=== PATIENT | male | born 1985 | race Two or more races ===

== ENCOUNTER 2017-10-26 16:01 | Inpatient (IN) | payer OTHER ==
[2017-10-26 18:30] VITALS: BMI 24.9
--- NOTE | 2017-10-26 19:58 | HP ---
CIWA Score - CIWA Score Nausea/Vomitin-Mild Nausea/No Vomiting Muscle Tremors: 4-Moderate,w/Arms Extend Anxiety: 4-Mod. Anxious/Guarded Agitation: 4-Moderately Restless Paroxysmal Sweats: 1-Minimal Palms Moist Orientation: 0-Oriented Tacttile Disturbances: 0-None Auditory Disturbances: 0-None Visual Disturbances: 0-None Headache: 0-None Present CIWA-Ar Total Score: 14 Admission ROS BHS - HPI Chief Complaint: withdrawal sx Allergies/Adverse Reactions: Allergies Allergy/AdvReac Type Severity Reaction Status Date / Time No Known Allergies Allergy Verified 06/05/16 19:28 History of Present Illness: 32 years old male with long history of xanax nicotine dependence has depression on methadone 170 mg po daily is admitted to detox Exam Limitations: No Limitations - Ebola screening Have you traveled outside of the country in the last 21 days: No (N) Have you had contact with anyone from an Ebola affected area: No Have you been sick,other than usual withdrawal symptoms: No Do you have a fever: No - Review of Systems Constitutional: Loss of Appetite, Changes in sleep, Unintentional Wgt. Loss EENT: reports: Nose Congestion Respiratory: reports: No Symptoms reported Cardiac: reports: No Symptoms Reported GI: reports: Nausea, Poor Appetite, Poor Fluid Intake, Indigestion, Abdominal cramping : reports: No Symptoms Reported Musculoskeletal: reports: Back Pain, Neck Pain Integumentary: reports: No Symptoms Reported Neuro: reports: Seizure (2012), Tremors Endocrine: reports: No Symptoms Reported Hematology: reports: No Symptoms Reported Psychiatric: reports: Judgement Intact, Orientated x3, Anxious, Depressed Other Systems: Reviewed and Negative Patient History - Patient Medical History Hx Anemia: No Hx Asthma: No Hx Chronic Obstructive Pulmonary Disease (COPD): No Hx Cancer: No Hx Cardiac Disorders: No Hx Congestive Heart Failure: No Hx Hypertension: No Hx Hypercholesterolemia: No Hx Pacemaker: No HX Cerebrovascular Accident: No Hx Seizures: Yes (09/2014) Hx Dementia: No Hx Diabetes: No Hx Gastrointestinal Disorders: Yes Hx Liver Disease: No Hx Genitourinary Disorders: No Hx Sexually Transmitted Disorders: No Hx Renal Disease (ESRD): No Hx Thyroid Disease: No Hx Human Immunodeficiency Virus (HIV): No (NEGATIVE HX) Hx Hepatitis C: No Hx Depression: Yes Hx Suicide Attempt: No Hx Bipolar Disorder: No Hx Schizophrenia: No - Patient Surgical History Past Surgical History: No Hx Neurologic Surgery: No Hx Cataract Extraction: No Hx Cardiac Surgery: No Hx Lung Surgery: No Hx Breast Surgery: No Hx Breast Biopsy: No Hx Abdominal Surgery: No Hx Appendectomy: No Hx Cholecystectomy: No Hx Genitourinary Surgery: No Hx Orthopedic Surgery: No - PPD History Previous Implant?: Yes Documented Results: Negative w/proof Implanted On Prior [facility] Admission?: Yes Date: 05/08/16 Results: 0mm PPD to be Administered?: Yes - Smoking Cessation Smoking history: Current every day smoker Have you smoked in the past 12 months: Yes Aproximately how many cigarettes per day: 20 Cigars Per Day: 0 Hx Chewing Tobacco Use: No Initiated information on smoking cessation: Yes 'Breaking Loose' booklet given: 10/26/17 - Substance & Tx. History Hx Alcohol Use: No Hx Substance Use: Yes Substance Use Type: Cocaine, Marijuana, Tranquilizers Hx Substance Use Treatment: Yes (2015) - Substances Abused Alprazolam (Xanax) Route: Oral Frequency: Daily Amount used: 10 mg Age of first use: 26 Date of Last Use: 10/26/17 Benzodiazepine (Klonopin) Route: Oral Frequency: Daily Amount used: 4 mg Age of first use: 28 Date of Last Use: 10/26/17 Family Disease History - Family Disease History Family Disease History: Heart Disease: Father (HTN), Respiratory: Sister, Other : Father Admission Physical Exam BHS - Vital Signs Vital Signs: Vital Signs - 24 hr 10/26/17 18:27 Temperature 97.3 F L Pulse Rate 90 Respiratory 18 Rate Blood Pressure 121/70 - Physical General Appearance: Yes: No Apparent Distress, Appropriately Dressed, Thin, Tremorous, Irritable, Sweating, Anxious HEENTM: Yes: Hearing grossly Normal, Normal ENT Inspection, Normocephalic, Normal Voice Respiratory: Yes: Chest Non-Tender, Lungs Clear, Normal Breath Sounds, No Respiratory Distress, No Accessory Muscle Use Neck: Yes: Supple, Trachea in good position Breast: Yes: Breasts Symetrical Cardiology: Yes: Regular Rhythm, S1, S2, Tachycardia Abdominal: Yes: Non Tender, Soft, Increased Bowel Sounds Genitourinary: Yes: Within Normal Limits Back: Yes: Normal Inspection Musculoskeletal: Yes: full range of Motion, Gait Steady Extremities: Yes: Normal Inspection, Normal Range of Motion, Non-Tender, Tremors Neurological: Yes: Fully Oriented, Alert, Motor Strength 5/5, Normal Response, Depressed Affect Integumentary: Yes: Warm Lymphatic: Yes: Within Normal Limits - Diagnostic (1) Nicotine dependence Current Visit: Yes Status: Acute Qualifiers: Nicotine product type: cigarettes Substance use status: in withdrawal Qualified Code(s): F17.213 - Nicotine dependence, cigarettes, with withdrawal (2) Sedative, hypnotic or anxiolytic dependence with withdrawal, uncomplicated Current Visit: Yes Status: Acute (3) Methadone maintenance therapy patient Current Visit: Yes Status: Chronic Comment: 170 mg verification pending (4) GERD (gastroesophageal reflux disease) Current Visit: Yes Status: Chronic Qualifiers: Esophagitis presence: without esophagitis Qualified Code(s): K21.9 - Gastro -esophageal reflux disease without esophagitis Cleared for Admission S - Detox or Rehab [facility] Level of Care: Medically Managed Detox Regimen/Protocol: Valium [facility] Breath Alcohol Content Breath Alcohol Content: 0 Urine Drug Screen - Results Drug Screen Negative: No Urine Drug Screen Results: THC-Marijuana, TANI-Cocaine, BZO-Benzodiazepines, MTD- Methadone
[2017-10-26] MEDS ORDERED: NICOTINE POLACRILEX 4 MG GUM BC PRN (20:02)
[2017-10-26] MEDS ORDERED: guaiFENesin/D-METHORPHAN HB 10 ML UNIT-DOSE CUPS PO PRN (20:02)
[2017-10-26] MEDS ORDERED: LOPERAMIDE HCL 2 MG CAPSULE PO PRN (20:02)
[2017-10-26] MEDS ORDERED: MAGNESIUM CITRATE 300 ML BOTTLE PO PRN (20:02)
[2017-10-26] MEDS ORDERED: diazePAM 5 MG TABLET PO PRN (20:02)
[2017-10-26] MEDS ORDERED: MENTHOL/PHENOL 1 EACH UD MM PRN (20:02)
[2017-10-26] MEDS ORDERED: diazePAM 5 MG TABLET PO ONE (20:02)
[2017-10-26] MEDS ORDERED: P-EPHED 60MG/TRIPROLIDI 2.5MG TABLET PO PRN (20:02)
[2017-10-26] MEDS ORDERED: MAGNESIUM HYDROX 2400MG/30ML ORAL SUSPENSION 30 ML CUP PO PRN (20:02)
[2017-10-26] MEDS ORDERED: MAG HYDROX/AL HYDROX/SIMETH 30 ML UNIT-DOSE CUP PO PRN (20:02)
[2017-10-26] MEDS: FLUTICASONE PROP 0.05% 16 GM NASAL SPRAY NS SCH (23:36)
[2017-10-26] MEDS: THIAMINE HCL 100 MG TABLET (FP) PO SCH (23:36)
[2017-10-26] MEDS: RANITIDINE HCL 150 MG TABLET (FP) PO SCH (23:36)
[2017-10-26] MEDS: diazePAM 5 MG TABLET PO SCH (23:36)
[2017-10-27] MEDS: diazePAM 5 MG TABLET PO SCH ×3 (05:34→22:20)
[2017-10-27] MEDS ORDERED: METHADONE HCL 10 MG TABLET PO SCH (09:15)
[2017-10-27] MEDS: ACETAMINOPHEN 325 MG TABLET (FP) PO PRN (09:35)
[2017-10-27] MEDS ORDERED: METHADONE HCL 10 MG TABLET ONE (09:39)
[2017-10-27] MEDS ORDERED: METHADONE HCL 40 MG DISPERSABLE TABLET ONE (09:40)
[2017-10-27 10:15] LABS: HEMATOCRIT 42.8 % (35.4-49); HEMOGLOBIN 14.4 GM/dL (11.7-16.9); MCH 32.6 pg (25.7-33.7); MCHC 33.5 g/dl (32.0-35.9); MEAN CELL VOLUME 97.1 fl (80-96); PLATELET COUNT 177 K/MM3 (134-434); RBC 4.41 M/mm3 (4.00-5.60); RDW 13.9 % (11.9-15.9); WHITE BLOOD COUNT 8.4 K/mm3 (4.0-10.0)
[2017-10-27 10:40] LABS: ALBUMIN 3.5 g/dl (3.4-5.0); ANION GAP 3 (8-16); BILIRUBIN,TOTAL 0.4 mg/dL (0.2-1.0); BLOOD UREA NITROGEN 16 mg/dL (7-18); CALCIUM 8.4 mg/dL (8.5-10.1); CHLORIDE 107 mmol/L (98-107); CO2 33 mmol/L (21-32); CREATININE 0.8 mg/dL (0.7-1.3); GLUCOSE,RANDOM 77 mg/dL (74-106); SGOT/AST 9 U/L (15-37); SGPT/ALT 14 U/L (12-78); SODIUM 143 mmol/L (136-145); TOT PROT 6.1 g/dl (6.4-8.2)
[2017-10-27 10:41] LABS: ALK PHOS 58 U/L (45-117)
[2017-10-27] MEDS: METHADONE 160 MG, METHADONE 10 MG PO SCH (10:43)
[2017-10-27] MEDS: PRENATAL VITAMINS W/ FOLIC ACID TABLET (FP) PO SCH (10:43)
[2017-10-27] MEDS: RANITIDINE HCL 150 MG TABLET (FP) PO SCH ×2 (10:43→22:21)
[2017-10-27] MEDS: NICOTINE 21 MG/24 HOURS TOPICAL PATCH TD SCH (10:44)
[2017-10-27] MEDS: FLUTICASONE PROP 0.05% 16 GM NASAL SPRAY NS SCH ×2 (10:45→22:22)
--- NOTE | 2017-10-27 11:45 | EKG ---
Test Reason : Blood Pressure : / mmHG Vent. Rate : 051 BPM Atrial Rate : 051 BPM P-R Int : 150 ms QRS Dur : 096 ms QT Int : 468 ms P-R-T Axes : 035 064 046 degrees QTc Int : 431 ms SINUS BRADYCARDIA MODERATE VOLTAGE CRITERIA FOR LVH, MAY BE NORMAL VARIANT EARLY REPOLARIZATION BORDERLINE ECG WHEN COMPARED WITH ECG OF 05-JUN-2016 10:12, VENT. RATE HAS DECREASED BY 53 BPM Confirmed by TYREE RS, FARHAT ([id number]) on 10/27/2017 11:44:39 AM Referred By: GINGER NICHOLAS Confirmed By:FARHAT CLEMENTS MD
[2017-10-27] MEDS ORDERED: FLU VACCINE QUAD 60 MCG/0.5 ML (MDV 17-18) IM ONE (12:00)
[2017-10-27] MEDS ORDERED: PNEUMOC 13-VAL CONJ-DIP CRM/PF 0.5 ML DISP.SYRIN IM ONE (12:00)
[2017-10-27] MEDS ORDERED: PNEUMOCOCCAL 23 VACCINE 0.5 ML VIAL IM ONE (12:00)
--- NOTE | 2017-10-27 14:31 | CONSULT ---
[facility] Psychiatric Consult - Data Date of interview: 10/27/17 Admission source: [facility] Identifying data: This is 32 years old male with no psychiatric hospiytalization history intoxicated with: Xanax, Cocaine, Methadone, Cannabis Substance Abuse History: - Smoking Cessation. Smoking history: Current every day smoker. Have you smoked in the past 12 months: Yes. Aproximately how many cigarettes per day: 20. Cigars Per Day: 0. Hx Chewing Tobacco Use: No. Initiated information on smoking cessation: Yes. 'Breaking Loose' booklet given : 10/26/17. - Substance & Tx. History. Hx Alcohol Use: No. Hx Substance Use: Yes. Substance Use Type: Cocaine, Marijuana, Tranquilizers. Hx Substance Use Treatment: Yes (2015). - Substances Abused. Alprazolam (Xanax). Route: Oral. Frequency: Daily. Amount used: 10 mg. Age of first use: 26. Date of Last Use: 10/26/17. Benzodiazepine (Klonopin). Route: Oral. Frequency: Daily. Amount used: 4 mg. Age of first use: 28. Date of Last Use: 10/26/17 Medical History: MMTP M170mg per day, GERD Psychiatric History: pATIENT REPORTS HIOSTORY OF ANXIETY , INSOMNIA, denies psychiatric hospitalization history, Reports good response on Trazodone 150mg po qhs Physical/Sexual Abuse/Trauma History: Denies Additional Comment: Trazodone 150mg po qhs Mental Status Exam - Mental Status Exam Alert and Oriented to: Place, Person Cognitive Function: Fair Patient Appearance: Well Groomed Mood: Euthymic Affect: Mood Congruent Patient Behavior: Cooperative Speech Pattern: Appropriate Voice Loudness: Normal Thought Process: Disoriented Thought Disorder: Being Controlled Hallucinations: Denies Suicidal Ideation: Denies Homicidal Ideation: Denies Insight/Judgement: Fair Sleep: Difficulty falling asleep Appetite: Fair Muscle strength/Tone: Normal Gait/Station: Normal Additional Comments: Trazodone 150mg po qhs Psychiatric Findings - Problem List ([place] 1, 2,3) (1) Nicotine dependence Current Visit: Yes Status: Acute Qualifiers: Nicotine product type: cigarettes Substance use status: in withdrawal Qualified Code(s): F17.213 - Nicotine dependence, cigarettes, with withdrawal (2) Sedative, hypnotic or anxiolytic dependence with withdrawal, uncomplicated Current Visit: Yes Status: Acute (3) Methadone maintenance therapy patient Current Visit: Yes Status: Chronic Comment: 170 mg verification pending (4) Cannabis dependence, uncomplicated Current Visit: No Status: Acute (5) Opioid dependence on agonist therapy Current Visit: No Status: Acute (6) Sedative hypnotic or anxiolytic dependence Current Visit: No Status: Acute (7) Substance-induced sleep disorder Current Visit: No Status: Acute - Initial Treatment Plan Initial Treatment Plan: Trazodone 150mg po qhs
--- NOTE | 2017-10-27 15:45 | PN ---
S CIWA - CIWA Score Nausea/Vomitin Muscle Tremors: 3 Anxiety: 4-Mod. Anxious/Guarded Agitation: 3 Paroxysmal Sweats: No Perspiration Orientation: 0-Oriented Tacttile Disturbances: 2-Mild Itch/Numbness/Burn Auditory Disturbances: 0-None Visual Disturbances: 1-Very Mild Sensitivity Headache: 4-Moderately Severe CIWA-Ar Total Score: 20 BHS Progress Note (SOAP) Subjective: Sweating, Tremors, anxious, H/A, Constipation. Objective: PT. A & O X 3, OBSERVED AMBULATING ON UNIT. NO ACUTE DISTRESS. 10/27/17 15:43 Vital Signs Temperature 96.5 F L 10/27/17 13:11 Pulse Rate 51 L 10/27/17 13:11 Respiratory Rate 18 10/27/17 13:11 Blood Pressure 112/67 10/27/17 13:11 O2 Sat by Pulse Oximetry (%) Laboratory Tests 10/27/17 10/27/17 10/27/17 07:00 07:00 07:00 WBC 8.4 D RBC 4.41 Hgb 14.4 Hct 42.8 MCV 97.1 H MCH 32.6 MCHC 33.5 RDW 13.9 Plt Count 177 D MPV 10.0 D Sodium 143 Potassium 4.0 Chloride 107 Carbon Dioxide 33 H D Anion Gap 3 L BUN 16 D Creatinine 0.8 Creat Clearance w eGFR > 60 Random Glucose 77 Calcium 8.4 L Total Bilirubin 0.4 AST 9 L D ALT 14 D Alkaline Phosphatase 58 Total Protein 6.1 L Albumin 3.5 RPR Titer Nonreactive HIV 1&2 Antibody Screen HIV P24 Antigen 10/27/17 09:00 WBC RBC Hgb Hct MCV MCH MCHC RDW Plt Count MPV Sodium Potassium Chloride Carbon Dioxide Anion Gap BUN Creatinine Creat Clearance w eGFR Random Glucose Calcium Total Bilirubin AST ALT Alkaline Phosphatase Total Protein Albumin RPR Titer HIV 1&2 Antibody Screen Negative HIV P24 Antigen Negative LABS NOTED. HCV AB, UA, AND RPR RESULTS PENDING. 10/27/17 15:44 10/27/17 15:45 Assessment: 10/27/17 15:44 WITHDRAWAL SYMPTOMS. Plan: CONTINUE DETOX. INCREASE DAILY PO FLUID INTAKE. PRN MOM FOR CONSTIPATION.
[2017-10-27 16:52] LABS: URINE APPEARANCE CLEAR; URINE BILIRUBIN NEGATIVE (NEGATIVE); URINE BLOOD NEGATIVE (NEGATIVE); URINE COLOR YELLOW; URINE GLUCOSE (UA) NEGATIVE (NEGATIVE); URINE KETONE NEGATIVE (NEGATIVE); URINE LEUK ESTERASE TRACE (NEGATIVE); URINE NITRITE NEGATIVE (NEGATIVE); URINE PROTEIN NEGATIVE (NEGATIVE); URINE UROBILINOGEN NEGATIVE mg/dL (0.2-1.0)
[2017-10-27 17:25] LABS: EPI CELLS RARE /HPF (FEW); URINE MUCUS FEW
[2017-10-27] MEDS: THIAMINE HCL 100 MG TABLET (FP) PO SCH (22:20)
[2017-10-27] MEDS: traZODone HCL 50 MG TABLET (FP) PO SCH (22:21)
[2017-10-28] MEDS ORDERED: METHADONE HCL 10 MG TABLET ONE (04:24)
[2017-10-28] MEDS ORDERED: METHADONE HCL 40 MG DISPERSABLE TABLET ONE (04:24)
[2017-10-28] MEDS: METHADONE 160 MG, METHADONE 10 MG PO SCH (05:51)
[2017-10-28] MEDS: RANITIDINE HCL 150 MG TABLET (FP) PO SCH ×2 (10:37→22:35)
[2017-10-28] MEDS: diazePAM 5 MG TABLET PO SCH ×2 (10:37→22:35)
[2017-10-28] MEDS: PRENATAL VITAMINS W/ FOLIC ACID TABLET (FP) PO SCH (10:37)
[2017-10-28] MEDS: NICOTINE 21 MG/24 HOURS TOPICAL PATCH TD SCH (10:37)
[2017-10-28] MEDS: FLUTICASONE PROP 0.05% 16 GM NASAL SPRAY NS SCH ×2 (10:38→22:36)
--- NOTE | 2017-10-28 15:10 | PN ---
S CIWA - CIWA Score Nausea/Vomitin Muscle Tremors: None Anxiety: 4-Mod. Anxious/Guarded Agitation: 2 Paroxysmal Sweats: 3 Orientation: 0-Oriented Tacttile Disturbances: 0-None Auditory Disturbances: 2-Mild Harshness/Frighten Visual Disturbances: 2-Mild Sensitivity Headache: 0-None Present CIWA-Ar Total Score: 16 S Progress Note (SOAP) Subjective: Nausea, Sweating, Constipation, Fatigue, Stomach Cramping. Objective: PT. A & O X 3, OBSERVED AMBULATING ON UNIT. NO ACUTE DISTRESS. 10/28/17 15:08 Vital Signs Temperature 97.9 F 10/28/17 13:26 Pulse Rate 59 L 10/28/17 13:26 Respiratory Rate 20 10/28/17 13:26 Blood Pressure 121/75 10/28/17 13:26 O2 Sat by Pulse Oximetry (%) Laboratory Tests 10/26/17 10/26/17 10/27/17 07:00 16:35 07:00 WBC 8.4 D RBC 4.41 Hgb 14.4 Hct 42.8 MCV 97.1 H MCH 32.6 MCHC 33.5 RDW 13.9 Plt Count 177 D MPV 10.0 D Sodium Potassium Chloride Carbon Dioxide Anion Gap BUN Creatinine Creat Clearance w eGFR Random Glucose Calcium Total Bilirubin AST ALT Alkaline Phosphatase Total Protein Albumin Urine Color Yellow Urine Appearance Clear Urine pH 6.0 Ur Specific [place] 1.016 Urine Protein Negative Urine Glucose (UA) Negative Urine Ketones Negative Urine Blood Negative Urine Nitrite Negative Urine Bilirubin Negative Urine Urobilinogen Negative Ur Leukocyte Esterase Negative Urine WBC (Auto) 1 Urine RBC (Auto) <1 Ur Epithelial Cells Rare Urine Mucus Few RPR Titer Hepatitis C Antibody <0.1 HIV 1&2 Antibody Screen HIV P24 Antigen 10/27/17 10/27/17 10/27/17 07:00 07:00 09:00 WBC RBC Hgb Hct MCV MCH MCHC RDW Plt Count MPV Sodium 143 Potassium 4.0 Chloride 107 Carbon Dioxide 33 H D Anion Gap 3 L BUN 16 D Creatinine 0.8 Creat Clearance w eGFR > 60 Random Glucose 77 Calcium 8.4 L Total Bilirubin 0.4 AST 9 L D ALT 14 D Alkaline Phosphatase 58 Total Protein 6.1 L Albumin 3.5 Urine Color Urine Appearance Urine pH Ur Specific [place] Urine Protein Urine Glucose (UA) Urine Ketones Urine Blood Urine Nitrite Urine Bilirubin Urine Urobilinogen Ur Leukocyte Esterase Urine WBC (Auto) Urine RBC (Auto) Ur Epithelial Cells Urine Mucus RPR Titer Nonreactive Hepatitis C Antibody HIV 1&2 Antibody Screen Negative HIV P24 Antigen Negative LABS NOTED. Assessment: 10/28/17 15:09 WITHDRAWAL SYMPTOMS. Plan: CONTINUE DETOX. INCREASE DAILY PO FLUID INTAKE. ENCOURAGE AMBULATION.
[2017-10-28] MEDS: ACETAMINOPHEN 325 MG TABLET (FP) PO PRN (20:10)
[2017-10-28] MEDS: traZODone HCL 50 MG TABLET (FP) PO SCH (22:35)
[2017-10-28] MEDS: THIAMINE HCL 100 MG TABLET (FP) PO SCH (22:36)
[2017-10-29] MEDS ORDERED: METHADONE HCL 40 MG DISPERSABLE TABLET ONE (04:51)
[2017-10-29] MEDS ORDERED: METHADONE HCL 10 MG TABLET ONE (04:51)
[2017-10-29] MEDS: METHADONE 160 MG, METHADONE 10 MG PO SCH (05:26)
[2017-10-29] MEDS: RANITIDINE HCL 150 MG TABLET (FP) PO SCH ×2 (10:59→22:47)
[2017-10-29] MEDS: PRENATAL VITAMINS W/ FOLIC ACID TABLET (FP) PO SCH (10:59)
[2017-10-29] MEDS: diazePAM 5 MG TABLET PO SCH ×2 (10:59→22:46)
[2017-10-29] MEDS: NICOTINE 21 MG/24 HOURS TOPICAL PATCH TD SCH (11:00)
[2017-10-29] MEDS: FLUTICASONE PROP 0.05% 16 GM NASAL SPRAY NS SCH ×2 (11:00→22:46)
[2017-10-29] MEDS ORDERED: IBUPROFEN 400 MG TABLET (FP) PO PRN (11:57)
[2017-10-29] MEDS ORDERED: ONDANSETRON *ODT* 4 MG TABLET SL PRN (11:58)
--- NOTE | 2017-10-29 15:14 | PN ---
BHS Progress Note (SOAP) Subjective: Constipation, H/A, Tremors. Objective: PT. A & O X 3, OBSERVED AMBULATING ON UNIT. NO ACUTE DISTRESS. 10/29/17 15:13 Vital Signs Temperature 98.5 F 10/29/17 14:58 Pulse Rate 63 10/29/17 14:58 Respiratory Rate 18 10/29/17 14:58 Blood Pressure 117/66 10/29/17 14:58 O2 Sat by Pulse Oximetry (%) Laboratory Tests 10/26/17 10/26/17 10/27/17 07:00 16:35 07:00 WBC 8.4 D RBC 4.41 Hgb 14.4 Hct 42.8 MCV 97.1 H MCH 32.6 MCHC 33.5 RDW 13.9 Plt Count 177 D MPV 10.0 D Sodium Potassium Chloride Carbon Dioxide Anion Gap BUN Creatinine Creat Clearance w eGFR Random Glucose Calcium Total Bilirubin AST ALT Alkaline Phosphatase Total Protein Albumin Urine Color Yellow Urine Appearance Clear Urine pH 6.0 Ur Specific [place] 1.016 Urine Protein Negative Urine Glucose (UA) Negative Urine Ketones Negative Urine Blood Negative Urine Nitrite Negative Urine Bilirubin Negative Urine Urobilinogen Negative Ur Leukocyte Esterase Negative Urine WBC (Auto) 1 Urine RBC (Auto) <1 Ur Epithelial Cells Rare Urine Mucus Few RPR Titer Hepatitis C Antibody <0.1 HIV 1&2 Antibody Screen HIV P24 Antigen 10/27/17 10/27/17 10/27/17 07:00 07:00 09:00 WBC RBC Hgb Hct MCV MCH MCHC RDW Plt Count MPV Sodium 143 Potassium 4.0 Chloride 107 Carbon Dioxide 33 H D Anion Gap 3 L BUN 16 D Creatinine 0.8 Creat Clearance w eGFR > 60 Random Glucose 77 Calcium 8.4 L Total Bilirubin 0.4 AST 9 L D ALT 14 D Alkaline Phosphatase 58 Total Protein 6.1 L Albumin 3.5 Urine Color Urine Appearance Urine pH Ur Specific [place] Urine Protein Urine Glucose (UA) Urine Ketones Urine Blood Urine Nitrite Urine Bilirubin Urine Urobilinogen Ur Leukocyte Esterase Urine WBC (Auto) Urine RBC (Auto) Ur Epithelial Cells Urine Mucus RPR Titer Nonreactive Hepatitis C Antibody HIV 1&2 Antibody Screen Negative HIV P24 Antigen Negative LABS NOTED. Assessment: 10/29/17 15:13 WITHDRAWAL SYMPTOMS. Plan: CONTINUE DETOX.
[2017-10-29] MEDS: traZODone HCL 50 MG TABLET (FP) PO SCH (22:46)
[2017-10-29] MEDS: THIAMINE HCL 100 MG TABLET (FP) PO SCH (22:46)
[2017-10-30] MEDS ORDERED: METHADONE HCL 10 MG TABLET ONE (04:23)
[2017-10-30] MEDS ORDERED: METHADONE HCL 40 MG DISPERSABLE TABLET ONE (04:24)
[2017-10-30] MEDS: METHADONE 160 MG, METHADONE 10 MG PO SCH (05:38)
[2017-10-30] MEDS ORDERED: diazePAM 5 MG TABLET PO SCH (10:00)
[2017-10-30 10:42] VITALS: BP 119/77; PULSE 69; TEMP 98.1
[2017-10-30] MEDS: RANITIDINE HCL 150 MG TABLET (FP) PO SCH (11:04)
[2017-10-30] MEDS: NICOTINE 21 MG/24 HOURS TOPICAL PATCH TD SCH (11:04)
[2017-10-30] MEDS: PRENATAL VITAMINS W/ FOLIC ACID TABLET (FP) PO SCH (11:04)
[2017-10-30] MEDS: FLUTICASONE PROP 0.05% 16 GM NASAL SPRAY NS SCH (11:04)
--- NOTE | 2017-10-30 15:27 | DS ---
[facility] Detox Discharge Summary Admission Date: 10/26/17 Discharge Date: 10/30/17 - History Present History: Sedative Dependence, MMTP Pertinent Past History: Seizure disorder GERD - Physical Exam Results Vital Signs: Vital Signs Temperature 98.1 F 10/30/17 10:41 Pulse Rate 69 10/30/17 10:41 Respiratory Rate 18 10/30/17 10:41 Blood Pressure 119/77 10/30/17 10:41 O2 Sat by Pulse Oximetry (%) Pertinent Admission Physical Exam Findings: Withdrawal symptoms Laboratory Tests 10/26/17 10/26/17 10/27/17 07:00 16:35 07:00 WBC 8.4 D RBC 4.41 Hgb 14.4 Hct 42.8 MCV 97.1 H MCH 32.6 MCHC 33.5 RDW 13.9 Plt Count 177 D MPV 10.0 D Sodium Potassium Chloride Carbon Dioxide Anion Gap BUN Creatinine Creat Clearance w eGFR Random Glucose Calcium Total Bilirubin AST ALT Alkaline Phosphatase Total Protein Albumin Urine Color Yellow Urine Appearance Clear Urine pH 6.0 Ur Specific [place] 1.016 Urine Protein Negative Urine Glucose (UA) Negative Urine Ketones Negative Urine Blood Negative Urine Nitrite Negative Urine Bilirubin Negative Urine Urobilinogen Negative Ur Leukocyte Esterase Negative Urine WBC (Auto) 1 Urine RBC (Auto) <1 Ur Epithelial Cells Rare Urine Mucus Few RPR Titer Hepatitis C Antibody <0.1 HIV 1&2 Antibody Screen HIV P24 Antigen 10/27/17 10/27/17 10/27/17 07:00 07:00 09:00 WBC RBC Hgb Hct MCV MCH MCHC RDW Plt Count MPV Sodium 143 Potassium 4.0 Chloride 107 Carbon Dioxide 33 H D Anion Gap 3 L BUN 16 D Creatinine 0.8 Creat Clearance w eGFR > 60 Random Glucose 77 Calcium 8.4 L Total Bilirubin 0.4 AST 9 L D ALT 14 D Alkaline Phosphatase 58 Total Protein 6.1 L Albumin 3.5 Urine Color Urine Appearance Urine pH Ur Specific [place] Urine Protein Urine Glucose (UA) Urine Ketones Urine Blood Urine Nitrite Urine Bilirubin Urine Urobilinogen Ur Leukocyte Esterase Urine WBC (Auto) Urine RBC (Auto) Ur Epithelial Cells Urine Mucus RPR Titer Nonreactive Hepatitis C Antibody HIV 1&2 Antibody Screen Negative HIV P24 Antigen Negative Labs noted - Treatment Hospital Course: Detox Protocol Followed, Detoxed Safely, Responded well, Discharged Condition Good - Medication Discharge Medications: Ambulatory Orders Trazodone HCl [Desyrel -] 150 mg PO HS #30 tablet 10/27/17 - Diagnosis (1) Depression Status: Chronic (2) Nicotine dependence Status: Chronic Qualifiers: Nicotine product type: cigarettes Substance use status: in withdrawal Qualified Code(s): F17.213 - Nicotine dependence, cigarettes, with withdrawal (3) Sedative, hypnotic or anxiolytic dependence with withdrawal, uncomplicated Status: Acute (4) GERD (gastroesophageal reflux disease) Status: Chronic Qualifiers: Esophagitis presence: without esophagitis Qualified Code(s): K21.9 - Gastro -esophageal reflux disease without esophagitis (5) Methadone maintenance therapy patient Status: Chronic (6) Seizure disorder Status: Chronic - AMA Did Patient Leave Against Medical Advice: No (Follow up with PCP in 1-2 weeks or sooner if warranted)
== END 2017-10-30 10:05 | disposition home or self-care (01) | DRG 773 ==
LOC: YASAS 16:01 → Y3N 22:27
PROVIDERS: ADMIT Internal Medicine; ATTEND Internal Medicine
PROC: HZ2ZZZZ Detoxification Services for Substance Abuse Treatment (ICD-10-PCS; principal; 2017-10-26)
DX: F11.20 Opioid dependence, uncomplicated (principal); F13.230 Sedative, hypnotic or anxiolytic dependence with withdrawal, uncomplicated; F12.20 Cannabis dependence, uncomplicated; F17.213 Nicotine dependence, cigarettes, with withdrawal; F32.9 Major depressive disorder, single episode, unspecified; F19.282 Other psychoactive substance dependence with psychoactive substance-induced sleep disorder; G40.909 Epilepsy, unspecified, not intractable, without status epilepticus; K21.9 Gastro-esophageal reflux disease without esophagitis
CPT/HCPCS: 36415; 80053; 81003; 81015; 85027; 86593; 86803; 87389; 90688; 90732; 93005; 93010; G0008; G0009

== ENCOUNTER 2017-11-03 11:23 | Emergency (ER) | payer OTHER ==
[2017-11-03 11:33] VITALS: TEMP 97.8; BMI 23.6
--- NOTE | 2017-11-03 11:50 | PDOC ---
History of Present Illness - General Chief Complaint: Substance Abuse Stated Complaint: VOMITING Time Seen by Provider: 11/03/17 11:39 - History of Present Illness Initial Comments: 11/03/17 11:42 32 yo M with h/o opioid dependence and polysubstance abuse presents with visual hallucinations. Patient reports "seeing things," when his eyes are closed and cannot differentiate between what is real and not real. He also endorses nausea without vomiting, and tremors. Denies CP, F/C, SOB, lightheadedness, vertigo, sensory disturbance, weakness, or worsening complaints. Reports Marijuanna use yesterday evening. Denies alcohol use. Recently inpatient [facility] for opioid addiction/withdrawal. On Methadone. Past History - Past Medical History Allergies/Adverse Reactions: Allergies Allergy/AdvReac Type Severity Reaction Status Date / Time No Known Allergies Allergy Verified 10/26/17 20:55 Home Medications: Ambulatory Orders Methadone [Dolophine -] 170 mg PO DAILY 11/03/17 Anemia: No Asthma: No Cancer: No Cardiac Disorders: No CVA: No COPD: No CHF: No Dementia: No Diabetes: No GI Disorders: No Disorders: No HTN: No Hypercholesterolemia: No Kidney Stones: No Liver Disease: No Seizures: No Thyroid Disease: No - Surgical History Abdominal Surgery: No Appendectomy: No Cardiac Surgery: No Cholecystectomy: No Lung Surgery: No Neurologic Surgery: No Orthopedic Surgery: No - Reproductive History Testicular Surgery: No - Immunization History Immunization Up to Date: Yes - Suicide/Smoking/Psychosocial Hx Smoking History: Current every day smoker Have you smoked in the past 12 months: Yes Number of Cigarettes Smoked Daily: 20 Cigars Per Day: 0 Information on smoking cessation initiated: No 'Breaking Loose' booklet given: 10/26/17 Hx Alcohol Use: No Drug/Substance Use Hx: Yes Substance Use Type: Cocaine, Marijuana, Tranquilizers Hx Substance Use Treatment: Yes Review of Systems - Review of Systems Comments:: 11/03/17 11:51 GENERAL/CONSTITUTIONAL: No fever or chills. No weakness. HEAD, EYES, EARS, NOSE AND THROAT: No change in vision. No ear pain or discharge. No sore throat.- CARDIOVASCULAR: No chest pain or shortness of breath RESPIRATORY: No cough, wheezing, or hemoptysis. GASTROINTESTINAL: No nausea, vomiting, diarrhea or constipation. GENITOURINARY: No dysuria, frequency, or change in urination. MUSCULOSKELETAL: No joint or muscle swelling or pain. No neck or back pain. SKIN: No rash NEUROLOGIC: No headache, vertigo, loss of consciousness, or change in strength/ sensation. ENDOCRINE: No increased thirst. No abnormal weight change HEMATOLOGIC/LYMPHATIC: No anemia, easy bleeding, or history of blood clots. ALLERGIC/IMMUNOLOGIC: No hives or skin allergy. *Physical Exam - Vital Signs Last Vital Signs Temp Pulse Resp BP Pulse Ox 97.8 F 79 18 158/85 100 11/03/17 11:31 11/03/17 11:31 11/03/17 11:31 11/03/17 11:31 11/03/17 11:31 - Physical Exam Comments: 11/03/17 11:51 GENERAL: Awake, alert, and fully oriented, anxious appearing. HEAD: No signs of trauma, normocephalic, atraumatic EYES: Pupils 4-5 mm. PERRLA, EOMI, sclera anicteric, conjunctiva clear ENT: Auricles normal inspection, hearing grossly normal, nares patent, oropharynx clear without exudates. Moist mucosa NECK: Normal ROM, supple, no lymphadenopathy, JVD, or masses LUNGS: No distress, speaks full sentences, clear to auscultation bilaterally HEART: Regular rate and rhythm, normal S1 and S2, no murmurs, rubs or gallops, peripheral pulses normal and equal bilaterally. ABDOMEN: Soft, nontender, normoactive bowel sounds. No guarding, no rebound. No masses EXTREMITIES : Normal inspection, Normal range of motion, no edema. No clubbing or cyanosis. NEUROLOGICAL: + Tremors. Cranial nerves II through XII grossly intact. Normal speech, normal gait, no focal sensorimotor deficits SKIN: Warm, Dry, normal turgor, no rashes or lesions noted. ED Treatment Course - LABORATORY CBC & Chemistry Diagram: 11/03/17 12:32 11/03/17 12:32 Medical Decision Making - Medical Decision Making 11/03/17 12:22 32 yo M with h/o opioid dependence and polysubstance abuse presents with visual hallucinations and reports of "seeing things," when his eyes are closed. Reports an inability to differentiate between what is real and not real. + Nausea without vomiting, and tremors. Denies CP, F/C, SOB, lightheadedness, vertigo, sensory disturbance, weakness, or worsening complaints.Denies homicidal /suicidal ideations. Reports Marijuanna use yesterday evening. Denies alcohol use. Recently inpatient [facility] for opioid addiction/withdrawal. On Methadone. Physical exam reveals mydriasis, and tremors. CV/Pulm unremarkable. BP 158/85. Will evaluate for alcohol withdrawal vs. substance abuse. Also consider electrolyte abnormality. ED Course: 11/03/17 12:58 EKG: NSR with sinus bradycardia and absent DANNY, STD , or TWI. UDS: + THC, Methadone, Benzodiazepenes 11/03/17 13:00 WBC: 14.1 11/03/17 13:04 UA: Neg 11/03/17 13:26 CMP: Neg 11/03/17 14:50 Xanax 0.25 4 days too soon to return for detox recently discharged from their facility after completing detox program (10/30). Called [phone] Barclay. He is not eligible for detox, but eligible for rehabilitation. Per [address] [place] [address] rehabilitation there are no beds available. Patient stable and ready for discharge with return precautions. *DC/Admit/Observation/Transfer Diagnosis at time of Disposition: Withdrawal syndrome - Discharge Dispostion Disposition: HOME Condition at time of disposition: Stable Admit: No - Referrals - Patient Instructions Printed Discharge Instructions: Getting Treatment for Drug Addiction Additional Instructions: Please return to the emergeny department with any new or worsening symptoms or concerns. - Post Discharge Activity - Attestations Physician Attestion: 11/03/17 14:48 I attest to the information provided in this note.
[2017-11-03 12:50] LABS: BASOPHIL 0.4 % (0-2.0); EOSINOPHIL 0.1 % (0-4.5); MCH 31.6 pg (25.7-33.7); MCHC 33.2 g/dl (32.0-35.9); MEAN CELL VOLUME 95.2 fl (80-96); MEAN PLT VOLUME 9.9 fl (7.5-11.1); NEUTROPHILS 78.5 % (42.8-82.8); PLATELET COUNT 216 K/MM3 (134-434); RDW 13.6 % (11.9-15.9); WHITE BLOOD COUNT 14.1 K/mm3 (4.0-10.0)
[2017-11-03 12:58] LABS: URINE MARIJUANA THC POSITIVE ng/ml (CUTOFF=50)
[2017-11-03 12:58] LABS: URINE APPEARANCE CLEAR; URINE BILIRUBIN NEGATIVE (NEGATIVE); URINE BLOOD NEGATIVE (NEGATIVE); URINE COLOR YELLOW; URINE GLUCOSE (UA) NEGATIVE (NEGATIVE); URINE KETONE 1+ (NEGATIVE); URINE LEUK ESTERASE TRACE (NEGATIVE); URINE NITRITE NEGATIVE (NEGATIVE); URINE PROTEIN NEGATIVE (NEGATIVE); URINE UROBILINOGEN NEGATIVE mg/dL (0.2-1.0)
[2017-11-03 13:01] LABS: URINE MUCUS MANY; URINE RBC 2 /hpf (0-3); URINE WBC 1 /hpf (3-5)
[2017-11-03 13:13] LABS: ALBUMIN 4.6 g/dl (3.4-5.0); ALK PHOS 79 U/L (45-117); ANION GAP 11 (8-16); BILIRUBIN,TOTAL 0.6 mg/dL (0.2-1.0); CALCIUM 9.8 mg/dL (8.5-10.1); CO2 28 mmol/L (21-32); CREATININE 0.8 mg/dL (0.7-1.3); GLUCOSE,RANDOM 99 mg/dL (74-106); SGOT/AST 15 U/L (15-37); SGPT/ALT 24 U/L (12-78); TOT PROT 8.2 g/dl (6.4-8.2)
[2017-11-03] MEDS ORDERED: METHADONE HCL 5 MG TABLET (FOR DETOX USE ONLY) PO SCH (13:30)
[2017-11-03] MEDS ORDERED: METHADONE HCL 10 MG TABLET ONE (13:34)
[2017-11-03] MEDS ORDERED: METHADONE HCL 40 MG DISPERSABLE TABLET ONE (13:34)
[2017-11-03 14:37] LABS: URINE LEUK ESTERASE Negative (NEGATIVE)
[2017-11-03] MEDS ORDERED: ALPRAZolam 0.25 MG TABLET PO ONE (14:51)
[2017-11-03] MEDS ORDERED: ALPRAZolam 0.25 MG TABLET ONE (15:08)
[2017-11-03 16:05] VITALS: BP 131/72; PULSE 70
--- NOTE | 2017-11-03 16:37 | EKG ---
Test Reason : Blood Pressure : / mmHG Vent. Rate : 054 BPM Atrial Rate : 054 BPM P-R Int : 140 ms QRS Dur : 080 ms QT Int : 442 ms P-R-T Axes : 037 054 034 degrees QTc Int : 419 ms SINUS BRADYCARDIA OTHERWISE NORMAL ECG WHEN COMPARED WITH ECG OF 27-OCT-2017 00:42, NO SIGNIFICANT CHANGE WAS FOUND Confirmed by FARHAT CLEMENTS MD ([id number]) on 11/03/2017 4:36:26 PM Referred By: Confirmed By:FARHAT CLEMENTS MD
--- NOTE | 2017-11-05 09:37 | PDOC ---
Attending Attestation - Resident Resident Name: Star Naranjo - ED Attending Attestation I have performed the following: I have examined & evaluated the patient, The case was reviewed & discussed with the resident, I agree w/resident's findings & plan, Exceptions are as noted - HPI HPI: 11/03/171699 32-year-old male with a history of polysubstance abuse recently discharged from [facility] on 1210 here today complaining of feeling like he is withdrawing. Patient reports nausea and intermittent vomiting says he also feels tremulous and has been having hallucinations. Denies any thoughts of suicide or homicide denies any prior psychiatric history states that he has not been recently using any substances since his discharge no other physical complaints - Physicial Exam PE: 11/03/171699 Patient is awake alert in no acute distress. Calm and cooperative. Lungs are clear bilaterally. Heart is regular without any murmurs rubs or gallops. Abdomen is soft and nontender extremities are warm and well perfused. Skin is warm and dry. Neuro patient is alert and oriented 3 no appreciated tremor on exam strength is 5 out of 5 all 4 extremities. Psychiatric patient is calm and cooperative speech is clear unpressured no auditory or visual hallucinations. No SI or HI - Medical Decision Making 11/03/171699 32-year-old male with a history of substance abuse recently in rehabilitation here today complaining of nausea and tremulousness and withdrawal symptoms. Patient's vital signs did not demonstrate any signs of dangerous alcohol or benzodiazepine withdrawal he is normotensive with a normal heart rate. Will evaluated with basic CBC electrolytes tox screen EKG. We'll give a small dose of Xanax here today. To aid his report report of symptoms. Will discuss with [facility] for possible repeat admission for rehabilitation or detox Discussed with [facility] did not currently have any beds states that he is not on her for detox however he would qualify for rehabilitation but there are no current beds available. In addition they do provide history on the patient seen and he did complete a full course of rehabilitation was given a prescription for trazodone on discharge and is to follow up with outpatient psychiatry and seek other facility as needed. We'll discharge patient home as he demonstrates no danger signs of any serious withdrawal toxidrome
== END 2017-11-03 16:05 | disposition home or self-care (01) ==
LOC: JER 11:23
DX: F11.23 Opioid dependence with withdrawal (principal)
CPT/HCPCS: 36415; 80053; 80307; 81003; 81015; 85025; 93005; 93010; 99284-25

== ENCOUNTER 2017-12-03 13:41 | Inpatient (IN) | payer OTHER ==
[2017-12-03 14:43] VITALS: BMI 25.1
--- NOTE | 2017-12-03 15:37 | HP ---
COWS - Scale Resting Pulse: 0= [place] 80 or Below Sweatin=Flushed/Facial Moisture Restless Observation: 1= Difficult to Sit Still Pupil Size: 0= Normal to Room Light Bone or Joint Aches: 2= Severe Diffuse Aches Runny Nose/ Eye Tearin= Nasal Congestion GI Upset > 30mins: 2= Nausea/Diarrhea Tremor Observation: 2= Slight Tremor Visible Yawning Observation: 1= 1-2x During Session Anxiety or Irritability: 2=Irritable/Anxious Goose Flesh Skin: 3=Piloerection COWS Score: 16 Admission ROS S - HPI Chief Complaint: I'm here for detox and then rehab Allergies/Adverse Reactions: Allergies Allergy/AdvReac Type Severity Reaction Status Date / Time No Known Allergies Allergy Verified 10/26/17 20:55 History of Present Illness: 32 y/o man with long standing h/o substance abuse presents for detox. His last treatment was in October 2017. Patient is on [facility] in [place]. He was medicated this morning, he has 2 bottles for 12/04 and 12/05. Exam Limitations: No Limitations - Ebola screening Have you traveled outside of the country in the last 21 days: No Have you had contact with anyone from an Ebola affected area: No Have you been sick,other than usual withdrawal symptoms: No Do you have a fever: No - Review of Systems Constitutional: Malaise, Changes in sleep EENT: reports: Blurred Vision, Nose Congestion Respiratory: reports: Cough Cardiac: reports: No Symptoms Reported GI: reports: Nausea, Poor Fluid Intake, Abdominal cramping : reports: No Symptoms Reported Musculoskeletal: reports: Muscle Pain, Muscle Weakness Integumentary: reports: No Symptoms Reported Neuro: reports: Headache, Tremors Endocrine: reports: No Symptoms Reported Hematology: reports: No Symptoms Reported Psychiatric: reports: Anxious, Depressed Other Systems: Reviewed and Negative Patient History - Patient Medical History Hx Anemia: No Hx Asthma: No Hx Chronic Obstructive Pulmonary Disease (COPD): No Hx Cancer: No Hx Cardiac Disorders: No Hx Congestive Heart Failure: No Hx Hypertension: No Hx Hypercholesterolemia: No Hx Pacemaker: No HX Cerebrovascular Accident: No Hx Seizures: No Hx Dementia: No Hx Diabetes: No Hx Gastrointestinal Disorders: Yes (GERD) Hx Liver Disease: No Hx Genitourinary Disorders: No Hx Sexually Transmitted Disorders: No Hx Renal Disease (ESRD): No Hx Thyroid Disease: No Hx Human Immunodeficiency Virus (HIV): No Hx Hepatitis C: No Hx Depression: Yes Hx Suicide Attempt: No Hx Bipolar Disorder: No Hx Schizophrenia: No - Patient Surgical History Past Surgical History: No - PPD History Previous Implant?: Yes Documented Results: Negative w/proof Implanted On Prior [facility] Admission?: Yes Date: 10/28/17 Results: 0mm PPD to be Administered?: No - Smoking Cessation Smoking history: Current every day smoker Have you smoked in the past 12 months: Yes Aproximately how many cigarettes per day: 20 Cigars Per Day: 0 Hx Chewing Tobacco Use: No Initiated information on smoking cessation: Yes 'Breaking Loose' booklet given: 12/03/17 - Substance & Tx. History Hx Substance Use: Yes (Xanax and Klonopin) Substance Use Type: Tranquilizers Hx Substance Use Treatment: Yes - Substances Abused Alprazolam (Xanax) Route: Oral Frequency: Daily Amount used: 8 mg Age of first use: 22 Date of Last Use: 12/03/17 Benzodiazepine (Klonopin) Route: Oral Frequency: Daily Amount used: 8mg Age of first use: 22 Date of Last Use: 12/03/17 Family Disease History - Family Disease History Family Disease History: Heart Disease: Father (HTN), Respiratory: Sister (Asthma ), Other: Father Admission Physical Exam [facility] - Vital Signs Vital Signs: Vital Signs - 24 hr 12/03/17 14:40 Temperature 96.1 F L Pulse Rate 74 Respiratory 18 Rate Blood Pressure 100/51 - Physical General Appearance: Yes: Nourished, Appropriately Dressed HEENTM: Yes: Hearing grossly Normal, Normal ENT Inspection, Normocephalic, Normal Voice Respiratory: Yes: Chest Non-Tender, Lungs Clear, No Respiratory Distress, No Accessory Muscle Use Neck: Yes: No masses,lesions,Nodules, Trachea in good position Breast: Yes: Breast Exam Deferred Cardiology: Yes: Regular Rhythm, Regular Rate, S1, S2 Abdominal: Yes: Normal Bowel Sounds, Non Tender, Soft Genitourinary: Yes: Within Normal Limits Back: Yes: Normal Inspection Extremities: Yes: Normal Capillary Refill, Normal Range of Motion, Non-Tender Neurological: Yes: supervisor malt house II-XII NML intact, Fully Oriented, Alert, Motor Strength 5/5 Integumentary: Yes: Normal Color, Warm Lymphatic: Yes: Within Normal Limits - Diagnostic (1) Seizure concurrent with and due to anxiolytic withdrawal Current Visit: Yes Status: Acute (2) Sedative hypnotic or anxiolytic dependence Current Visit: Yes Status: Acute (3) Methadone maintenance therapy patient Current Visit: Yes Status: Chronic Comment: 170 mg verification pending (4) Nicotine dependence Current Visit: Yes Status: Acute Qualifiers: Nicotine product type: cigarettes Substance use status: uncomplicated Qualified Code(s): F17.210 - Nicotine dependence, cigarettes, uncomplicated (5) GERD (gastroesophageal reflux disease) Current Visit: No Status: Chronic Qualifiers: Esophagitis presence: without esophagitis Qualified Code(s): K21.9 - Gastro -esophageal reflux disease without esophagitis Cleared for Admission [facility] - Detox or Rehab [facility] Level of Care: Medically Managed Detox Regimen/Protocol: Valium [facility] Breath Alcohol Content Breath Alcohol Content: 0 Urine Drug Screen - Results Drug Screen Negative: No Urine Drug Screen Results: THC-Marijuana, TANI-Cocaine, BZO-Benzodiazepines, MTD- Methadone
[2017-12-03] MEDS ORDERED: MAGNESIUM CITRATE 300 ML BOTTLE PO PRN (16:45)
[2017-12-03] MEDS ORDERED: LOPERAMIDE HCL 2 MG CAPSULE PO PRN (16:45)
[2017-12-03] MEDS ORDERED: P-EPHED 60MG/TRIPROLIDI 2.5MG TABLET PO PRN (16:45)
[2017-12-03] MEDS ORDERED: NICOTINE POLACRILEX 2 MG GUM BUC PRN (16:45)
[2017-12-03] MEDS ORDERED: guaiFENesin/D-METHORPHAN HB 10 ML UNIT-DOSE CUPS PO PRN (16:45)
[2017-12-03] MEDS ORDERED: hydrOXYzine PAMOATE 50 MG CAPSULE (FP) PO PRN (16:45)
[2017-12-03] MEDS ORDERED: diazePAM 5 MG TABLET PO ONE (16:45)
[2017-12-03] MEDS ORDERED: MAG HYDROX/AL HYDROX/SIMETH 30 ML UNIT-DOSE CUP PO PRN (16:45)
[2017-12-03] MEDS ORDERED: MENTHOL/PHENOL 1 EACH UD MM PRN (16:45)
[2017-12-03] MEDS ORDERED: ACETAMINOPHEN 325 MG TABLET (FP) PO PRN (16:45)
[2017-12-03] MEDS: diazePAM 5 MG TABLET PO PRN (20:00)
[2017-12-03 21:44] LABS: URINE APPEARANCE CLEAR; URINE BILIRUBIN NEGATIVE (NEGATIVE); URINE BLOOD NEGATIVE (NEGATIVE); URINE COLOR YELLOW; URINE GLUCOSE (UA) NEGATIVE (NEGATIVE); URINE KETONE NEGATIVE (NEGATIVE); URINE LEUK ESTERASE TRACE (NEGATIVE); URINE NITRITE NEGATIVE (NEGATIVE); URINE PROTEIN NEGATIVE (NEGATIVE); URINE UROBILINOGEN NEGATIVE mg/dL (0.2-1.0)
[2017-12-03 21:57] LABS: URINE MUCUS MODERATE
[2017-12-03] MEDS: THIAMINE HCL 100 MG TABLET (FP) PO SCH (23:14)
[2017-12-03] MEDS: diazePAM 5 MG TABLET PO SCH (23:14)
[2017-12-04] MEDS ORDERED: METHADONE HCL 40 MG DISPERSABLE TABLET ONE (04:27)
[2017-12-04] MEDS ORDERED: METHADONE HCL 10 MG TABLET ONE (04:27)
[2017-12-04] MEDS: diazePAM 5 MG TABLET PO SCH ×3 (05:59→22:27)
[2017-12-04] MEDS: METHADONE 160 MG, METHADONE 10 MG PO SCH (05:59)
[2017-12-04] MEDS ORDERED: METHADONE HCL 40 MG DISPERSABLE TABLET PO SCH (06:00)
--- NOTE | 2017-12-04 07:53 | CONSULT ---
[facility] Psychiatric Consult - Data Date of interview: 12/04/17 Admission source: Self-referred Identifying data: Mr Persaud is a 32 years old single male, father of a 4 years old son, unemployed, domiciled seeking detox treatment for benzodiazepine Substance Abuse History: Reports history of benzodiazepine use. Refer to addiction counselor's note for further information Medical History: Significant for acid reflux and a history of drug-related seizure. Patient is on methadone 170 mg/day. Smokes cigarettes 1ppd Psychiatric History: Reports that last month, he started seeing the psychiatrist at his methadone program([facility]) for help with his addiction to benzo. He said that the psychiatrist enrolled him in group and prescribed Trazadone 50 mg for sleep. At present, reports feeling depressed, anxious and sleeping poorly Physical/Sexual Abuse/Trauma History: Denies history of physical, sexual abuse as well as DV relationship Additional Comment: Reports history of a few misdemeanor arrests. Denies being on probation at present but has an active criminal case Mental Status Exam - Mental Status Exam Alert and Oriented to: Time, Place, Person Cognitive Function: Fair Patient Appearance: Well Groomed Mood: Depressed, Anxious Affect: Appropriate Patient Behavior: Cooperative Speech Pattern: Clear Voice Loudness: Normal Thought Process: Intact, Goal Oriented Hallucinations: Denies Suicidal Ideation: Denies Homicidal Ideation: Denies Insight/Judgement: Fair Sleep: Poorly Appetite: Good Muscle strength/Tone: Normal Gait/Station: Normal Psychiatric Findings - Problem List ([place] 1, 2,3) (1) Substance induced mood disorder Current Visit: Yes Status: Acute (2) Substance-induced sleep disorder Current Visit: Yes Status: Acute (3) Sedative, hypnotic or anxiolytic dependence with withdrawal, uncomplicated Current Visit: No Status: Acute (4) Opioid dependence on agonist therapy Current Visit: No Status: Chronic (5) Nicotine dependence Current Visit: Yes Status: Chronic Qualifiers: Nicotine product type: cigarettes Substance use status: uncomplicated Qualified Code(s): F17.210 - Nicotine dependence, cigarettes, uncomplicated (6) GERD (gastroesophageal reflux disease) Current Visit: No Status: Chronic Qualifiers: Esophagitis presence: without esophagitis Qualified Code(s): K21.9 - Gastro -esophageal reflux disease without esophagitis (7) Seizure disorder Current Visit: No Status: Chronic - Initial Treatment Plan Initial Treatment Plan: 1) Start Ambien 10 mg po HS prn for insomnia. 2) Continue inpatient detoxification
[2017-12-04] MEDS: diazePAM 5 MG TABLET PO PRN ×2 (09:03→19:40)
[2017-12-04 09:58] LABS: HEMOGLOBIN 13.7 GM/dL (11.7-16.9); MCH 31.5 pg (25.7-33.7); MCHC 32.6 g/dl (32.0-35.9); MEAN CELL VOLUME 96.7 fl (80-96); MEAN PLT VOLUME 9.8 fl (7.5-11.1); PLATELET COUNT 178 K/MM3 (134-434); RBC 4.34 M/mm3 (4.00-5.60); RDW 14.2 % (11.9-15.9); WHITE BLOOD COUNT 8.9 K/mm3 (4.0-10.0)
[2017-12-04 10:26] LABS: CHLORIDE 105 mmol/L (98-107); POTASSIUM 3.9 mmol/L (3.5-5.1); SODIUM 141 mmol/L (136-145)
[2017-12-04 10:34] LABS: ALBUMIN 3.3 g/dl (3.4-5.0); ALK PHOS 60 U/L (45-117); ANION GAP 6 (8-16); BILIRUBIN,TOTAL 0.4 mg/dL (0.2-1.0); BLOOD UREA NITROGEN 22 mg/dL (7-18); CALCIUM 8.1 mg/dL (8.5-10.1); CO2 30 mmol/L (21-32); CREATININE 0.9 mg/dL (0.7-1.3); GLUCOSE,RANDOM 117 mg/dL (74-106); SGOT/AST 11 U/L (15-37); SGPT/ALT 20 U/L (12-78)
[2017-12-04] MEDS: PRENATAL VITAMINS W/ FOLIC ACID TABLET (FP) PO SCH (10:35)
[2017-12-04] MEDS: NICOTINE 21 MG/24 HOURS TOPICAL PATCH TD SCH (10:36)
--- NOTE | 2017-12-04 15:19 | PN ---
S COWS - Scale Resting Pulse: 0= [place] 80 or Below Sweatin=Flushed/Facial Moisture Restless Observation: 1= Difficult to Sit Still Pupil Size: 0= Normal to Room Light Bone or Joint Aches: 1= Mild Discomfort Runny Nose/ Eye Tearin= Nasal Congestion GI Upset > 30mins: 1= Stomach Cramp Tremor Observation of Outstretched Hands: 2= Slight Tremor Visible Yawning Observation: 1= 1-2x During Session Anxiety or Irritability: 2=Irritable/Anxious Goose Flesh Skin: 0=Smooth Skin COWS Score: 11 [facility] Progress Note (SOAP) Subjective: Tremors sleep disturbance nasal congestion Objective: 12/04/17 15:22 Laboratory Last Values WBC 8.9 K/mm3 (4.0-10.0) D 12/04/17 07:30 RBC 4.34 M/mm3 (4.00-5.60) 12/04/17 07:30 Hgb 13.7 GM/dL (11.7-16.9) D 12/04/17 07:30 Hct 42.0 % (35.4-49) D 12/04/17 07:30 MCV 96.7 fl (80-96) H 12/04/17 07:30 MCH 31.5 pg (25.7-33.7) 12/04/17 07:30 MCHC 32.6 g/dl (32.0-35.9) 12/04/17 07:30 RDW 14.2 % (11.9-15.9) 12/04/17 07:30 Plt Count 178 K/MM3 (134-434) 12/04/17 07:30 MPV 9.8 fl (7.5-11.1) 12/04/17 07:30 Sodium 141 mmol/L (136-145) 12/04/17 07:30 Potassium 3.9 mmol/L (3.5-5.1) 12/04/17 07:30 Chloride 105 mmol/L (98-107) 12/04/17 07:30 Carbon Dioxide 30 mmol/L (21-32) 12/04/17 07:30 Anion Gap 6 (8-16) L 12/04/17 07:30 BUN 22 mg/dL (7-18) H D 12/04/17 07:30 Creatinine 0.9 mg/dL (0.7-1.3) 12/04/17 07:30 Creat Clearance w eGFR > 60 (>60) 12/04/17 07:30 Random Glucose 117 mg/dL (74-106) H 12/04/17 07:30 Calcium 8.1 mg/dL (8.5-10.1) L 12/04/17 07:30 Total Bilirubin 0.4 mg/dL (0.2-1.0) D 12/04/17 07:30 AST 11 U/L (15-37) L D 12/04/17 07:30 ALT 20 U/L (12-78) 12/04/17 07:30 Alkaline Phosphatase 60 U/L (45-117) D 12/04/17 07:30 Total Protein 6.0 g/dl (6.4-8.2) L D 12/04/17 07:30 Albumin 3.3 g/dl (3.4-5.0) L D 12/04/17 07:30 Urine Color Yellow 12/03/17 20:46 Urine Appearance Clear 12/03/17 20:46 Urine pH 5.0 (5.0-8.0) 12/03/17 20:46 Ur Specific [place] 1.021 (1.001-1.035) 12/03/17 20:46 Urine Protein Negative (NEGATIVE) 12/03/17 20:46 Urine Glucose (UA) Negative (NEGATIVE) 12/03/17 20:46 Urine Ketones Negative (NEGATIVE) 12/03/17 20:46 Urine Blood Negative (NEGATIVE) 12/03/17 20:46 Urine Nitrite Negative (NEGATIVE) 12/03/17 20:46 Urine Bilirubin Negative (NEGATIVE) 12/03/17 20:46 Urine Urobilinogen Negative mg/dL (0.2-1.0) 12/03/17 20:46 Ur Leukocyte Esterase Trace (NEGATIVE) 12/03/17 20:46 Urine WBC (Auto) <1 /hpf (3-5) 12/03/17 20:46 Urine RBC (Auto) 1 /hpf (0-3) 12/03/17 20:46 Urine Mucus Moderate 12/03/17 20:46 RPR Titer Nonreactive (NONREACTIVE) 12/04/17 07:30 HIV 1&2 Antibody Screen Negative 12/04/17 07:30 HIV P24 Antigen Negative 12/04/17 07:30 labs noted Assessment: 12/04/17 15:22 withdrawal sx Plan: continue detox
[2017-12-04] MEDS: THIAMINE HCL 100 MG TABLET (FP) PO SCH (22:27)
[2017-12-04] MEDS: ZOLPIDEM TARTRATE 5 MG TABLET PO PRN (22:27)
[2017-12-05] MEDS ORDERED: METHADONE HCL 10 MG TABLET ONE (04:56)
[2017-12-05] MEDS ORDERED: METHADONE HCL 40 MG DISPERSABLE TABLET ONE (04:56)
[2017-12-05] MEDS: METHADONE 160 MG, METHADONE 10 MG PO SCH (05:27)
[2017-12-05] MEDS: NICOTINE 21 MG/24 HOURS TOPICAL PATCH TD SCH (10:26)
[2017-12-05] MEDS: SODIUM CHLORIDE NASAL SPRAY 44 ML BOTTLE NS PRN ×2 (10:27→22:28)
[2017-12-05] MEDS: diazePAM 5 MG TABLET PO SCH ×2 (10:29→22:15)
[2017-12-05] MEDS: PRENATAL VITAMINS W/ FOLIC ACID TABLET (FP) PO SCH (10:30)
--- NOTE | 2017-12-05 11:47 | EKG ---
Test Reason : Blood Pressure : / mmHG Vent. Rate : 051 BPM Atrial Rate : 051 BPM P-R Int : 146 ms QRS Dur : 096 ms QT Int : 450 ms P-R-T Axes : 057 063 040 degrees QTc Int : 414 ms SINUS BRADYCARDIA POSSIBLE LEFT ATRIAL ENLARGEMENT LEFT VENTRICULAR HYPERTROPHY ABNORMAL ECG WHEN COMPARED WITH ECG OF 03-NOV-2017 12:16, NO SIGNIFICANT CHANGE WAS FOUND Confirmed by JUAN SHEIKH MD ([id number]) on 12/05/2017 11:47:28 AM Referred By: Rc Cruz Confirmed By:JUAN SHEIKH MD
--- NOTE | 2017-12-05 14:24 | PN ---
S COWS - Scale Resting Pulse: 0= [place] 80 or Below Sweatin= Chills/Flushing Restless Observation: 3= Extraneous Movement Pupil Size: 0= Normal to Room Light Bone or Joint Aches: 4=Acute Joint/Muscle Pain Runny Nose/ Eye Tearin= None GI Upset > 30mins: 0= None Tremor Observation of Outstretched Hands: 1= Tremor [place], Not Seen Yawning Observation: 2= >3x During Session Anxiety or Irritability: 1=Feels Anxious/Irritable Goose Flesh Skin: 0=Smooth Skin COWS Score: 12 S Progress Note (SOAP) Subjective: SLIGHT ANXIETY,SWEATS/CHILLS. DETOX PROCEEDING WELL. Objective: 12/05/17 14:23 Vital Signs Temperature 97.6 F 12/05/17 13:41 Pulse Rate 56 L 12/05/17 13:41 Respiratory Rate 18 12/05/17 13:41 Blood Pressure 119/76 12/05/17 13:41 O2 Sat by Pulse Oximetry (%) Laboratory Last Values WBC 8.9 K/mm3 (4.0-10.0) D 12/04/17 07:30 RBC 4.34 M/mm3 (4.00-5.60) 12/04/17 07:30 Hgb 13.7 GM/dL (11.7-16.9) D 12/04/17 07:30 Hct 42.0 % (35.4-49) D 12/04/17 07:30 MCV 96.7 fl (80-96) H 12/04/17 07:30 MCH 31.5 pg (25.7-33.7) 12/04/17 07:30 MCHC 32.6 g/dl (32.0-35.9) 12/04/17 07:30 RDW 14.2 % (11.9-15.9) 12/04/17 07:30 Plt Count 178 K/MM3 (134-434) 12/04/17 07:30 MPV 9.8 fl (7.5-11.1) 12/04/17 07:30 Sodium 141 mmol/L (136-145) 12/04/17 07:30 Potassium 3.9 mmol/L (3.5-5.1) 12/04/17 07:30 Chloride 105 mmol/L (98-107) 12/04/17 07:30 Carbon Dioxide 30 mmol/L (21-32) 12/04/17 07:30 Anion Gap 6 (8-16) L 12/04/17 07:30 BUN 22 mg/dL (7-18) H D 12/04/17 07:30 Creatinine 0.9 mg/dL (0.7-1.3) 12/04/17 07:30 Creat Clearance w eGFR > 60 (>60) 12/04/17 07:30 Random Glucose 117 mg/dL (74-106) H 12/04/17 07:30 Calcium 8.1 mg/dL (8.5-10.1) L 12/04/17 07:30 Total Bilirubin 0.4 mg/dL (0.2-1.0) D 12/04/17 07:30 AST 11 U/L (15-37) L D 12/04/17 07:30 ALT 20 U/L (12-78) 12/04/17 07:30 Alkaline Phosphatase 60 U/L (45-117) D 12/04/17 07:30 Total Protein 6.0 g/dl (6.4-8.2) L D 12/04/17 07:30 Albumin 3.3 g/dl (3.4-5.0) L D 12/04/17 07:30 Urine Color Yellow 12/03/17 20:46 Urine Appearance Clear 12/03/17 20:46 Urine pH 5.0 (5.0-8.0) 12/03/17 20:46 Ur Specific [place] 1.021 (1.001-1.035) 12/03/17 20:46 Urine Protein Negative (NEGATIVE) 12/03/17 20:46 Urine Glucose (UA) Negative (NEGATIVE) 12/03/17 20:46 Urine Ketones Negative (NEGATIVE) 12/03/17 20:46 Urine Blood Negative (NEGATIVE) 12/03/17 20:46 Urine Nitrite Negative (NEGATIVE) 12/03/17 20:46 Urine Bilirubin Negative (NEGATIVE) 12/03/17 20:46 Urine Urobilinogen Negative mg/dL (0.2-1.0) 12/03/17 20:46 Ur Leukocyte Esterase Trace (NEGATIVE) 12/03/17 20:46 Urine WBC (Auto) <1 /hpf (3-5) 12/03/17 20:46 Urine RBC (Auto) 1 /hpf (0-3) 12/03/17 20:46 Urine Mucus Moderate 12/03/17 20:46 RPR Titer Nonreactive (NONREACTIVE) 12/04/17 07:30 HIV 1&2 Antibody Screen Negative 12/04/17 07:30 HIV P24 Antigen Negative 12/04/17 07:30 Assessment: 12/05/17 14:23 WITHDRAWAL SX Plan: CONTINUE DETOX INCREASE PO FLUIDS.
--- NOTE | 2017-12-05 14:28 | PN ---
[facility] CIWA - CIWA Score Nausea/Vomitin-No Nausea/No Vomiting Muscle Tremors: 3 Anxiety: 4-Mod. Anxious/Guarded Agitation: 3 Paroxysmal Sweats: 1-Minimal Palms Moist Orientation: 0-Oriented Tacttile Disturbances: 2-Mild Itch/Numbness/Burn Auditory Disturbances: 0-None Visual Disturbances: 0-None Headache: 0-None Present CIWA-Ar Total Score: 13
[2017-12-05] MEDS: IBUPROFEN 400 MG TABLET (FP) PO PRN (18:57)
[2017-12-05] MEDS: ZOLPIDEM TARTRATE 5 MG TABLET PO PRN (22:15)
[2017-12-05] MEDS: THIAMINE HCL 100 MG TABLET (FP) PO SCH (22:15)
[2017-12-06] MEDS ORDERED: METHADONE HCL 10 MG TABLET PO ONE ×3 (08:53→09:18)
[2017-12-06] MEDS ORDERED: METHADONE 120 MG, METHADONE 30 MG PO ONE (09:13)
[2017-12-06] MEDS ORDERED: METHADONE HCL 10 MG TABLET ONE (09:29)
[2017-12-06] MEDS ORDERED: METHADONE HCL 40 MG DISPERSABLE TABLET ONE (09:29)
[2017-12-06] MEDS: NICOTINE 21 MG/24 HOURS TOPICAL PATCH TD SCH (09:32)
[2017-12-06] MEDS: diazePAM 5 MG TABLET PO SCH ×2 (09:32→22:19)
[2017-12-06] MEDS: PRENATAL VITAMINS W/ FOLIC ACID TABLET (FP) PO SCH (09:32)
[2017-12-06] MEDS: SODIUM CHLORIDE NASAL SPRAY 44 ML BOTTLE NS PRN ×2 (09:33→22:21)
[2017-12-06] MEDS ORDERED: METHADONE 160 MG, METHADONE 10 MG PO ONE (09:45)
[2017-12-06] MEDS: MAGNESIUM HYDROX 2400MG/30ML ORAL SUSPENSION 30 ML CUP PO PRN (10:26)
--- NOTE | 2017-12-06 11:07 | PN ---
[facility] Progress Note (SOAP) Subjective: ANXIETY,SWEATS,IRRITABILITY,CHILLS. Objective: 12/06/17 11:07 Vital Signs Temperature 97.0 F L 12/06/17 10:12 Pulse Rate 53 L 12/06/17 10:12 Respiratory Rate 18 12/06/17 10:12 Blood Pressure 125/82 12/06/17 10:12 O2 Sat by Pulse Oximetry (%) Laboratory Last Values WBC 8.9 K/mm3 (4.0-10.0) D 12/04/17 07:30 RBC 4.34 M/mm3 (4.00-5.60) 12/04/17 07:30 Hgb 13.7 GM/dL (11.7-16.9) D 12/04/17 07:30 Hct 42.0 % (35.4-49) D 12/04/17 07:30 MCV 96.7 fl (80-96) H 12/04/17 07:30 MCH 31.5 pg (25.7-33.7) 12/04/17 07:30 MCHC 32.6 g/dl (32.0-35.9) 12/04/17 07:30 RDW 14.2 % (11.9-15.9) 12/04/17 07:30 Plt Count 178 K/MM3 (134-434) 12/04/17 07:30 MPV 9.8 fl (7.5-11.1) 12/04/17 07:30 Sodium 141 mmol/L (136-145) 12/04/17 07:30 Potassium 3.9 mmol/L (3.5-5.1) 12/04/17 07:30 Chloride 105 mmol/L (98-107) 12/04/17 07:30 Carbon Dioxide 30 mmol/L (21-32) 12/04/17 07:30 Anion Gap 6 (8-16) L 12/04/17 07:30 BUN 22 mg/dL (7-18) H D 12/04/17 07:30 Creatinine 0.9 mg/dL (0.7-1.3) 12/04/17 07:30 Creat Clearance w eGFR > 60 (>60) 12/04/17 07:30 Random Glucose 117 mg/dL (74-106) H 12/04/17 07:30 Calcium 8.1 mg/dL (8.5-10.1) L 12/04/17 07:30 Total Bilirubin 0.4 mg/dL (0.2-1.0) D 12/04/17 07:30 AST 11 U/L (15-37) L D 12/04/17 07:30 ALT 20 U/L (12-78) 12/04/17 07:30 Alkaline Phosphatase 60 U/L (45-117) D 12/04/17 07:30 Total Protein 6.0 g/dl (6.4-8.2) L D 12/04/17 07:30 Albumin 3.3 g/dl (3.4-5.0) L D 12/04/17 07:30 Urine Color Yellow 12/03/17 20:46 Urine Appearance Clear 12/03/17 20:46 Urine pH 5.0 (5.0-8.0) 12/03/17 20:46 Ur Specific [place] 1.021 (1.001-1.035) 12/03/17 20:46 Urine Protein Negative (NEGATIVE) 12/03/17 20:46 Urine Glucose (UA) Negative (NEGATIVE) 12/03/17 20:46 Urine Ketones Negative (NEGATIVE) 12/03/17 20:46 Urine Blood Negative (NEGATIVE) 12/03/17 20:46 Urine Nitrite Negative (NEGATIVE) 12/03/17 20:46 Urine Bilirubin Negative (NEGATIVE) 12/03/17 20:46 Urine Urobilinogen Negative mg/dL (0.2-1.0) 12/03/17 20:46 Ur Leukocyte Esterase Trace (NEGATIVE) 12/03/17 20:46 Urine WBC (Auto) <1 /hpf (3-5) 12/03/17 20:46 Urine RBC (Auto) 1 /hpf (0-3) 12/03/17 20:46 Urine Mucus Moderate 12/03/17 20:46 RPR Titer Nonreactive (NONREACTIVE) 12/04/17 07:30 HIV 1&2 Antibody Screen Negative 12/04/17 07:30 HIV P24 Antigen Negative 12/04/17 07:30 Assessment: 12/06/17 11:07 WITHDRAWAL SX Plan: CONTINUE DETOX
[2017-12-06 16:35] LABS: URINE APPEARANCE SLCLOUDY; URINE BILIRUBIN NEGATIVE (NEGATIVE); URINE BLOOD NEGATIVE (NEGATIVE); URINE COLOR YELLOW; URINE GLUCOSE (UA) NEGATIVE (NEGATIVE); URINE KETONE NEGATIVE (NEGATIVE); URINE LEUK ESTERASE TRACE (NEGATIVE); URINE NITRITE NEGATIVE (NEGATIVE); URINE PROTEIN NEGATIVE (NEGATIVE); URINE UROBILINOGEN NEGATIVE mg/dL (0.2-1.0)
[2017-12-06] MEDS: IBUPROFEN 400 MG TABLET (FP) PO PRN (16:53)
[2017-12-06 17:23] LABS: EPI CELLS RARE /HPF (FEW)
[2017-12-06] MEDS: THIAMINE HCL 100 MG TABLET (FP) PO SCH (22:19)
[2017-12-06] MEDS: ZOLPIDEM TARTRATE 5 MG TABLET PO PRN (22:19)
[2017-12-07] MEDS ORDERED: METHADONE HCL 40 MG DISPERSABLE TABLET ONE (04:53)
[2017-12-07] MEDS ORDERED: METHADONE HCL 10 MG TABLET ONE (04:53)
[2017-12-07] MEDS: METHADONE 160 MG, METHADONE 10 MG PO SCH (05:16)
[2017-12-07] MEDS ORDERED: METHADONE HCL 10 MG TABLET PO SCH (06:00)
[2017-12-07] MEDS ORDERED: METHADONE HCL 10 MG TABLET PO ONE (06:00)
[2017-12-07] MEDS: IBUPROFEN 400 MG TABLET (FP) PO PRN ×2 (08:27→22:23)
[2017-12-07] MEDS ORDERED: diazePAM 5 MG TABLET PO SCH (10:00)
[2017-12-07] MEDS: NICOTINE 21 MG/24 HOURS TOPICAL PATCH TD SCH (10:24)
[2017-12-07] MEDS: PRENATAL VITAMINS W/ FOLIC ACID TABLET (FP) PO SCH (10:25)
[2017-12-07] MEDS: SODIUM CHLORIDE NASAL SPRAY 44 ML BOTTLE NS PRN ×2 (10:26→22:22)
--- NOTE | 2017-12-07 11:57 | PN ---
[facility] Progress Note (SOAP) Subjective: LAST DAY OF MEDICATION. REFERRED TO REHAB IN AM. Objective: 12/07/17 11:56 Vital Signs Temperature 97.2 F L 12/07/17 09:17 Pulse Rate 53 L 12/07/17 09:17 Respiratory Rate 18 12/07/17 09:17 Blood Pressure 132/82 12/07/17 09:17 O2 Sat by Pulse Oximetry (%) Laboratory Last Values WBC 8.9 K/mm3 (4.0-10.0) D 12/04/17 07:30 RBC 4.34 M/mm3 (4.00-5.60) 12/04/17 07:30 Hgb 13.7 GM/dL (11.7-16.9) D 12/04/17 07:30 Hct 42.0 % (35.4-49) D 12/04/17 07:30 MCV 96.7 fl (80-96) H 12/04/17 07:30 MCH 31.5 pg (25.7-33.7) 12/04/17 07:30 MCHC 32.6 g/dl (32.0-35.9) 12/04/17 07:30 RDW 14.2 % (11.9-15.9) 12/04/17 07:30 Plt Count 178 K/MM3 (134-434) 12/04/17 07:30 MPV 9.8 fl (7.5-11.1) 12/04/17 07:30 Sodium 141 mmol/L (136-145) 12/04/17 07:30 Potassium 3.9 mmol/L (3.5-5.1) 12/04/17 07:30 Chloride 105 mmol/L (98-107) 12/04/17 07:30 Carbon Dioxide 30 mmol/L (21-32) 12/04/17 07:30 Anion Gap 6 (8-16) L 12/04/17 07:30 BUN 22 mg/dL (7-18) H D 12/04/17 07:30 Creatinine 0.9 mg/dL (0.7-1.3) 12/04/17 07:30 Creat Clearance w eGFR > 60 (>60) 12/04/17 07:30 Random Glucose 117 mg/dL (74-106) H 12/04/17 07:30 Calcium 8.1 mg/dL (8.5-10.1) L 12/04/17 07:30 Total Bilirubin 0.4 mg/dL (0.2-1.0) D 12/04/17 07:30 AST 11 U/L (15-37) L D 12/04/17 07:30 ALT 20 U/L (12-78) 12/04/17 07:30 Alkaline Phosphatase 60 U/L (45-117) D 12/04/17 07:30 Total Protein 6.0 g/dl (6.4-8.2) L D 12/04/17 07:30 Albumin 3.3 g/dl (3.4-5.0) L D 12/04/17 07:30 Urine Color Yellow 12/06/17 14:11 Urine Appearance Slcloudy 12/06/17 14:11 Urine pH 8.0 (5.0-8.0) D 12/06/17 14:11 Ur Specific [place] 1.016 (1.001-1.035) 12/06/17 14:11 Urine Protein Negative (NEGATIVE) 12/06/17 14:11 Urine Glucose (UA) Negative (NEGATIVE) 12/06/17 14:11 Urine Ketones Negative (NEGATIVE) 12/06/17 14:11 Urine Blood Negative (NEGATIVE) 12/06/17 14:11 Urine Nitrite Negative (NEGATIVE) 12/06/17 14:11 Urine Bilirubin Negative (NEGATIVE) 12/06/17 14:11 Urine Urobilinogen Negative mg/dL (0.2-1.0) 12/06/17 14:11 Ur Leukocyte Esterase Trace (NEGATIVE) 12/06/17 14:11 Urine WBC (Auto) 1 /hpf (3-5) 12/06/17 14:11 Urine RBC (Auto) 2 /hpf (0-3) 12/06/17 14:11 Ur Epithelial Cells Rare /HPF (FEW) 12/06/17 14:11 Urine Mucus Moderate 12/03/17 20:46 RPR Titer Nonreactive (NONREACTIVE) 12/04/17 07:30 HIV 1&2 Antibody Screen Negative 12/04/17 07:30 HIV P24 Antigen Negative 12/04/17 07:30 ASSYMPTOMATIC UA RESULT Assessment: 12/07/17 11:57 WITHDRAWAL SX Plan: CONTINUE DETOX INCREASE PO FLUIDS.
[2017-12-07] MEDS: THIAMINE HCL 100 MG TABLET (FP) PO SCH (22:22)
[2017-12-07] MEDS: ZOLPIDEM TARTRATE 5 MG TABLET PO PRN (22:22)
[2017-12-07] MEDS: MAGNESIUM HYDROX 2400MG/30ML ORAL SUSPENSION 30 ML CUP PO PRN (22:24)
[2017-12-08] MEDS ORDERED: METHADONE HCL 10 MG TABLET ONE (04:52)
[2017-12-08] MEDS ORDERED: METHADONE HCL 40 MG DISPERSABLE TABLET ONE (04:53)
[2017-12-08] MEDS: METHADONE 160 MG, METHADONE 10 MG PO SCH (05:16)
[2017-12-08] MEDS ORDERED: METHADONE HCL 10 MG TABLET PO SCH (06:00)
[2017-12-08 09:10] VITALS: BP 123/80; PULSE 63; TEMP 97.3
--- NOTE | 2017-12-08 09:10 | DS ---
[facility] Detox Discharge Summary Admission Date: 12/03/17 Discharge Date: 12/08/17 ([facility]) - History Present History: Cannabis Dependence, Sedative Dependence, MMTP Additional Comments: DETOX COMPLETED. ALERT O X 3. NAD. REFERRED TO REHAB TODAY. Pertinent Past History: HX SEIZURES GERD - Physical Exam Results Vital Signs: Vital Signs Temperature 96.5 F L 12/08/17 06:02 Pulse Rate 56 L 12/08/17 06:02 Respiratory Rate 16 12/08/17 06:02 Blood Pressure 112/66 12/08/17 06:02 O2 Sat by Pulse Oximetry (%) Pertinent Admission Physical Exam Findings: WITHDRAWAL SX Laboratory Last Values WBC 8.9 K/mm3 (4.0-10.0) D 12/04/17 07:30 RBC 4.34 M/mm3 (4.00-5.60) 12/04/17 07:30 Hgb 13.7 GM/dL (11.7-16.9) D 12/04/17 07:30 Hct 42.0 % (35.4-49) D 12/04/17 07:30 MCV 96.7 fl (80-96) H 12/04/17 07:30 MCH 31.5 pg (25.7-33.7) 12/04/17 07:30 MCHC 32.6 g/dl (32.0-35.9) 12/04/17 07:30 RDW 14.2 % (11.9-15.9) 12/04/17 07:30 Plt Count 178 K/MM3 (134-434) 12/04/17 07:30 MPV 9.8 fl (7.5-11.1) 12/04/17 07:30 Sodium 141 mmol/L (136-145) 12/04/17 07:30 Potassium 3.9 mmol/L (3.5-5.1) 12/04/17 07:30 Chloride 105 mmol/L (98-107) 12/04/17 07:30 Carbon Dioxide 30 mmol/L (21-32) 12/04/17 07:30 Anion Gap 6 (8-16) L 12/04/17 07:30 BUN 22 mg/dL (7-18) H D 12/04/17 07:30 Creatinine 0.9 mg/dL (0.7-1.3) 12/04/17 07:30 Creat Clearance w eGFR > 60 (>60) 12/04/17 07:30 Random Glucose 117 mg/dL (74-106) H 12/04/17 07:30 Calcium 8.1 mg/dL (8.5-10.1) L 12/04/17 07:30 Total Bilirubin 0.4 mg/dL (0.2-1.0) D 12/04/17 07:30 AST 11 U/L (15-37) L D 12/04/17 07:30 ALT 20 U/L (12-78) 12/04/17 07:30 Alkaline Phosphatase 60 U/L (45-117) D 12/04/17 07:30 Total Protein 6.0 g/dl (6.4-8.2) L D 12/04/17 07:30 Albumin 3.3 g/dl (3.4-5.0) L D 12/04/17 07:30 Urine Color Yellow 12/06/17 14:11 Urine Appearance Slcloudy 12/06/17 14:11 Urine pH 8.0 (5.0-8.0) D 12/06/17 14:11 Ur Specific [place] 1.016 (1.001-1.035) 12/06/17 14:11 Urine Protein Negative (NEGATIVE) 12/06/17 14:11 Urine Glucose (UA) Negative (NEGATIVE) 12/06/17 14:11 Urine Ketones Negative (NEGATIVE) 12/06/17 14:11 Urine Blood Negative (NEGATIVE) 12/06/17 14:11 Urine Nitrite Negative (NEGATIVE) 12/06/17 14:11 Urine Bilirubin Negative (NEGATIVE) 12/06/17 14:11 Urine Urobilinogen Negative mg/dL (0.2-1.0) 12/06/17 14:11 Ur Leukocyte Esterase Trace (NEGATIVE) 12/06/17 14:11 Urine WBC (Auto) 1 /hpf (3-5) 12/06/17 14:11 Urine RBC (Auto) 2 /hpf (0-3) 12/06/17 14:11 Ur Epithelial Cells Rare /HPF (FEW) 12/06/17 14:11 Urine Mucus Moderate 12/03/17 20:46 RPR Titer Nonreactive (NONREACTIVE) 12/04/17 07:30 HIV 1&2 Antibody Screen Negative 12/04/17 07:30 HIV P24 Antigen Negative 12/04/17 07:30 - Treatment Hospital Course: Detox Protocol Followed, Detoxed Safely, Responded well, Discharged Condition Good, Rehab Referral Accepted Patient has Accepted a Rehab Referral to: [facility] - Medication Discharge Medications: Ambulatory Orders Methadone [Dolophine -] 170 mg PO DAILY 11/03/17 Trazodone HCl 50 mg PO HS 12/03/17 - Diagnosis (1) Sedative hypnotic or anxiolytic dependence Current Visit: Yes Status: Acute (2) Seizure concurrent with and due to anxiolytic withdrawal Current Visit: Yes Status: Suspected (3) Nicotine dependence Current Visit: Yes Status: Acute Qualifiers: Nicotine product type: cigarettes Substance use status: in withdrawal Qualified Code(s): F17.213 - Nicotine dependence, cigarettes, with withdrawal (4) Cannabis dependence, uncomplicated Current Visit: Yes Status: Acute (5) GERD (gastroesophageal reflux disease) Current Visit: Yes Status: Chronic Qualifiers: Esophagitis presence: without esophagitis Qualified Code(s): K21.9 - Gastro -esophageal reflux disease without esophagitis (6) Methadone maintenance therapy patient Current Visit: Yes Status: Chronic - AMA Did Patient Leave Against Medical Advice: No
[2017-12-08] MEDS: IBUPROFEN 400 MG TABLET (FP) PO PRN (10:21)
[2017-12-08] MEDS: PRENATAL VITAMINS W/ FOLIC ACID TABLET (FP) PO SCH (10:21)
[2017-12-08] MEDS: NICOTINE 21 MG/24 HOURS TOPICAL PATCH TD SCH (10:23)
== END 2017-12-08 11:32 | disposition other institution (70) | DRG 773 ==
LOC: YASAS 13:41 → Y3N 17:52
PROVIDERS: ADMIT Internal Medicine; ATTEND Internal Medicine
PROC: HZ2ZZZZ Detoxification Services for Substance Abuse Treatment (ICD-10-PCS; principal; 2017-12-03)
DX: F13.230 Sedative, hypnotic or anxiolytic dependence with withdrawal, uncomplicated (principal); F11.20 Opioid dependence, uncomplicated; F12.20 Cannabis dependence, uncomplicated; F17.213 Nicotine dependence, cigarettes, with withdrawal; F19.24 Other psychoactive substance dependence with psychoactive substance-induced mood disorder; F19.282 Other psychoactive substance dependence with psychoactive substance-induced sleep disorder; K21.9 Gastro-esophageal reflux disease without esophagitis; Z86.69 Personal history of other diseases of the nervous system and sense organs
CPT/HCPCS: 36415; 80053; 81003; 81015; 85027; 86593; 87389; 93005; 93010

== ENCOUNTER 2017-12-08 11:38 | Inpatient (IN) | payer OTHER ==
--- NOTE | 2017-12-08 12:02 | HP ---
Psychiatrist Admission - Data Date of interview: 12/08/17 Admission source: 3N Identifying data: This is the third [facility] admission for thisc32 years old single male, unemployed, domiciled Medical History: Significant for acid reflux and a history of drug-related seizure. Patient is on methadone 170 mg/day. Smokes cigarettes 1ppd Psychiatric History: Patient seen by sign writer hand on 12/04/17 while in detox. he reported that last month, he started seeing the psychiatrist at his methadone program([facility]) for help with his addiction to benzo. He said that the psychiatrist enrolled him in group and prescribed Trazadone 50 mg for sleep. At present, reports feeling depressed, anxious and sleeping poorly. He opted to have Ambien ordered in lieu of Trazadone Physical/Sexual Abuse/Trauma History: Denies history of physical, sexual abuse as well as DV relationship Additional Comment: Reports history of a few misdemeanor arrests. Denies being on probation at present but has an active criminal case Allergies/Adverse Reactions: Allergies Allergy/AdvReac Type Severity Reaction Status Date / Time No Known Allergies Allergy Verified 12/08/17 11:42 Date of last physical exam: 12/03/17 Concur with the findings of this exam: Yes - Substance Abuse/Tx History Hx Alcohol Use: No Hx Substance Use: Yes Substance Use Type: Tranquilizers (Started using benzodiazepine(xanax, klonopin ) at age 22 and consumes 8 mg of xanax orklonopin daily. Last used on 12/03/17 ) Hx Substance Use Treatment: Yes (2 previous int detox & 2 inpt rehab admissions @ [facility]) Psychiatric Findings - Problem List ([place] 1, 2,3) (1) Sedative hypnotic or anxiolytic dependence Current Visit: No Status: Acute (2) Opioid dependence on agonist therapy Current Visit: No Status: Chronic (3) Nicotine dependence Current Visit: Yes Status: Chronic (4) Substance-induced anxiety disorder Current Visit: No Status: Acute (5) Substance-induced sleep disorder Current Visit: Yes Status: Acute (6) GERD (gastroesophageal reflux disease) Current Visit: No Status: Chronic Qualifiers: Esophagitis presence: without esophagitis Qualified Code(s): K21.9 - Gastro -esophageal reflux disease without esophagitis (7) Seizure disorder Current Visit: No Status: Chronic - Initial Treatment Plan Initial Treatment Plan: 1) Start Belsomra 10 mg po HS prn for insomnia. 2) Monitor progress
--- NOTE | 2017-12-08 12:37 | HP ---
[facility] Re[facility] Assess/Revision - Admission History Admitted to Rehab from: [facility] [place] Date of Admission to Rehab: 12/07/17 - Vital signs Vital Signs: Vital Signs Period Temp Pulse Resp BP Sys/Schwartz Pulse Ox Last 24 Hr 98.6 F 73 18 136/71 - Findings Detox History & Physical reviewed: Yes Concur with findings: Yes Inpatient Rehab Admission - Initial Determination Are CD services needed?: Yes Free of communicable disease: Yes Not in need of hospitalization: Yes - Rehab Admission Criteria Comorbidities: Yes Lacks judgement: Yes Patient is meeting Inpatient Rehab admission criteria:: Yes
[2017-12-08] MEDS ORDERED: MENTHOL/PHENOL 1 EACH UD MM PRN (12:39)
[2017-12-08] MEDS ORDERED: MAGNESIUM CITRATE 300 ML BOTTLE PO PRN (12:39)
[2017-12-08] MEDS ORDERED: MAG HYDROX/AL HYDROX/SIMETH 30 ML UNIT-DOSE CUP PO PRN (12:39)
[2017-12-08] MEDS ORDERED: guaiFENesin/D-METHORPHAN HB 10 ML UNIT-DOSE CUPS PO PRN (12:39)
[2017-12-08] MEDS ORDERED: P-EPHED 60MG/TRIPROLIDI 2.5MG TABLET PO PRN (12:39)
[2017-12-08] MEDS ORDERED: NICOTINE POLACRILEX 4 MG GUM BUC PRN (12:39)
[2017-12-08] MEDS ORDERED: MAGNESIUM HYDROX 2400MG/30ML ORAL SUSPENSION 30 ML CUP PO PRN (12:39)
[2017-12-08] MEDS ORDERED: LOPERAMIDE HCL 2 MG CAPSULE PO PRN (12:39)
[2017-12-08] MEDS ORDERED: ACETAMINOPHEN 325 MG TABLET (FP) PO PRN (12:39)
[2017-12-08] MEDS: hydrOXYzine PAMOATE 50 MG CAPSULE (FP) PO PRN (21:23)
[2017-12-08] MEDS: IBUPROFEN 400 MG TABLET (FP) PO PRN (21:52)
[2017-12-08] MEDS ORDERED: THIAMINE HCL 100 MG TABLET (FP) PO SCH (22:00)
[2017-12-09] MEDS: hydrOXYzine PAMOATE 50 MG CAPSULE (FP) PO PRN ×2 (06:50→10:13)
[2017-12-09] MEDS ORDERED: METHADONE HCL 10 MG TABLET PO SCH (07:00)
[2017-12-09] MEDS ORDERED: METHADONE 160 MG, METHADONE 10 MG PO SCH ×3 (07:15→10:00)
[2017-12-09] MEDS ORDERED: METHADONE HCL 10 MG TABLET ONE (07:26)
[2017-12-09] MEDS ORDERED: METHADONE HCL 40 MG DISPERSABLE TABLET ONE (07:26)
[2017-12-09 07:41] VITALS: BP 116/78; PULSE 78; TEMP 97.3
[2017-12-09] MEDS: IBUPROFEN 400 MG TABLET (FP) PO PRN (08:50)
[2017-12-09] MEDS ORDERED: METHADONE HCL 40 MG DISPERSABLE TABLET PO SCH (10:00)
[2017-12-09] MEDS ORDERED: PRENATAL VITAMINS W/ FOLIC ACID TABLET (FP) PO SCH (10:00)
[2017-12-09] MEDS ORDERED: NICOTINE 21 MG/24 HOURS TOPICAL PATCH TD SCH (10:00)
--- NOTE | 2017-12-09 10:40 | PN ---
Psychiatric Progress Note Vital Signs: Vital Signs Period Temp Pulse Resp BP Sys/Schwartz Pulse Ox Last 24 Hr 97.3 F-98.6 F 73-78 18-20 116-136/71-78 Date of Session: 12/09/17 Chief Complaint:: AMA Discharge note HPI: Patient addresing Sedative Dependence comorbid with Opoid Dependence on Agonist Therapy, Nicotine Dependence and Substance-induced Anxiety Disorder ROS: GERD. Seizure Disorder Current Medications: Active Medications Generic Name Dose Route Start Last Admin Trade Name Freq PRN Reason Stop Dose Admin Acetaminophen 650 mg 12/08/17 12:39 Tylenol - PO Q4H PRN FEVER Al Hydroxide/Mg Hydroxide 30 ml 12/08/17 12:39 Mylanta Oral Suspension - PO Q6H PRN DYSPEPSIA Eucalyptus/Menthol/Phenol/Sorbitol 1 each 12/08/17 12:39 Cepastat Lozenge - MM Q4H PRN SORE THROAT Guaifenesin 10 ml 12/08/17 12:39 Robitussin Dm - PO Q6H PRN COUGH Hydroxyzine Pamoate 50 mg 12/08/17 12:23 12/09/17 10:13 Vistaril - PO 50 mg Q4H PRN Administration ANXIETY Ibuprofen 400 mg 12/08/17 12:39 12/09/17 08:50 Motrin - PO 400 mg Q6H PRN Administration Pain Level 4-6 Loperamide HCl 4 mg 12/08/17 12:39 Imodium - PO Q6H PRN DIARRHEA Magnesium Citrate 300 ml 12/08/17 12:39 Citroma - PO Q48H PRN CONSTIPATION Magnesium Hydroxide 30 ml 12/08/17 12:39 Milk Of Magnesia - PO DAILY PRN CONSTIPATION Methadone HCl 160 mg/ 170 mg 12/09/17 07:30 12/09/17 07:30 Methadone HCl 10 mg PO 170 mg DAILY@0600 JOSE ANGEL Administration Nicotine 21 mg 12/09/17 10:00 12/09/17 10:13 Nicoderm Patch - TD 21 mg DAILY JOSE ANGEL Administration Nicotine Polacrilex 4 mg 12/08/17 12:39 Nicorette Gum - BUC Q2H PRN NICOTINE REPLACEMENT RX Multivit/Folic Acid/Iron 1 tab 12/09/17 10:00 12/09/17 10:13 Vitamins (Sjr) - PO 1 tab DAILY JOSE ANGEL Administration Pseudoephedrine/Triprolidine 1 combo 12/08/17 12:39 Actifed - PO TID PRN NASAL CONGESTION Thiamine HCl 100 mg 12/08/17 22:00 12/08/17 21:21 Vitamin B1 - PO 100 mg HS JOSE ANGEL Administration Current Side Effect: No Lab tests ordered: Yes Lab tests reviewed: Yes Provider note:: Patient has not completed this program. He wants to leave against medical advice. He said that he wanted to leave to do care for his son. He was determined to leave despite encouragement to stay and complete the program. He is stablr for discharge AMA Total face to face time:: 25 Mental Status Exam - Mental Status Exam Alert and Oriented to: Time, Place, Person Cognitive Function: Fair Patient Appearance: Well Groomed Mood: Hopeful, Euthymic Affect: Appropriate Patient Behavior: Cooperative Speech Pattern: Clear Voice Loudness: Normal Thought Process: Intact, Goal Oriented Thought Disorder: Not Present Hallucinations: Denies Suicidal Ideation: Denies Homicidal Ideation: Denies Insight/Judgement: Poor Sleep: Fair Appetite: Good Muscle strength/Tone: Normal Gait/Station: Normal Psychiatric Treatment Plan - Problem List (1) Sedative hypnotic or anxiolytic dependence Current Visit: No (2) Opioid dependence on agonist therapy Current Visit: No (3) Nicotine dependence Current Visit: Yes (4) Substance-induced anxiety disorder Current Visit: No (5) Substance-induced sleep disorder Current Visit: Yes (6) GERD (gastroesophageal reflux disease) Current Visit: No Qualifiers: Esophagitis presence: without esophagitis Qualified Code(s): K21.9 - Gastro -esophageal reflux disease without esophagitis (7) Seizure disorder Current Visit: No Initial treatment plan: Patient is leaving AMA
== END 2017-12-09 10:35 | disposition left against medical advice (07) | DRG 770 ==
LOC: YASAS 11:38 → Y3W 11:39
PROVIDERS: ADMIT Psychiatry & Neurology Psychiatry; ATTEND Psychiatry & Neurology Psychiatry
PROC: HZ42ZZZ Group Counseling for Substance Abuse Treatment, Cognitive-Behavioral (ICD-10-PCS; principal; 2017-12-08)
DX: F11.20 Opioid dependence, uncomplicated (principal); F13.230 Sedative, hypnotic or anxiolytic dependence with withdrawal, uncomplicated; F17.210 Nicotine dependence, cigarettes, uncomplicated; F19.24 Other psychoactive substance dependence with psychoactive substance-induced mood disorder; F19.282 Other psychoactive substance dependence with psychoactive substance-induced sleep disorder; Z86.69 Personal history of other diseases of the nervous system and sense organs